=== PATIENT | female | born 1945 | race Caucasian/White ===

== ENCOUNTER → 2021-03-15 | Outpatient (CLI) | payer MEDICARE ==
--- NOTE | 2021-03-16 17:40 | RAD ---
Bilateral digital screening 2-D and 3-D (tomosynthesis) mammogram: Reason for examination: Routine screening. Comparison is made to previous study dated 02/14/2020. Bilateral mammograms in CC and oblique projections were obtained with 2-D imaging and 3-D tomosynthes is imaging and reviewed on the workstation. Interpretation was made with the benefit of CAD. Findings: Breast density: Category D. The breasts are extremely dense which lowers sensitivity of mammography. There is a 8 mm oval mass in the 2:00 position of the right breast about 1 cm from the nipple. There is a 9 mm oval mass in the retroareolar 6:00 region of the left breast. There is a 9 mm probabl e oval mass in the 10:00 position of the left breast about 2 cm from the nipple. Evaluation is limite d due to dense fibroglandular tissue. There are no malignant appearing calcifications or architectura l distortion. Impression: There is evidence of bilateral breast masses. The study is limited due to extremely dense fibroglandu lar tissue. Further evaluation with bilateral whole breast ultrasound is recommended. ASSESSMENT: BI-RADS 0. Incomplete. Recommendations: Bilateral whole breast ultrasound. This patient's information has been entered into a reminder system for the patient to be notified wit h the results of her examination and a target date for the next mammogram. Your patient's mammogram demonstrates that she has dense breast tissue (breast density category C or D), which could hide abnormalities, and if she has other risk factors for breast cancer that have bee n identified, she might benefit from supplemental screening tests that may be suggested by you as her ordering physician. Dense breast tissue, in and of itself, is a relatively common condition. Therefo re, this information is not provided to cause undue concern, but rather to raise your awareness and t o promote discussion with your patient regarding the presence of other risk factors, in addition to d ense breast tissue. Electronically signed by: Torrie Serrato MD (03/16/2021 5:37 PM) [id number]
== END ==
LOC: MAMMO 10:53 → EDUNIT# 11:00
PROVIDERS: ATTEND Family Medicine
DX: Z12.31 Encounter for screening mammogram for malignant neoplasm of breast (principal)
CPT/HCPCS: 77063; 77067

== ENCOUNTER → 2021-03-23 | Outpatient (CLI) | payer MEDICARE ==
--- NOTE | 2021-03-23 14:23 | RAD ---
EXAM: Bilateral breast sonogram. HISTORY: 75-year-old female presents for evaluation of findings within both breasts demonstrated on a mammogram dated 03/15/2021. TECHNIQUE: Sonographic imaging of both breasts including all 4 quadrants and the retroareolar regions was performed. COMPARISON: Mammograms dated 03/15/2021 and 02/14/2020. FINDINGS: Sonographic imaging of the right breast demonstrates extremely dense breast parenchyma. The re are scattered areas of fibrocystic change. There is a 3 mm cyst at the 2:00 position 1 cm from the nipple. No suspicious sonographic lesion is seen. There are benign axillary lymph nodes. Sonographic imaging of the left breast demonstrates extremely dense breast. There are focally dilated ducts containing debris at the 6:00 subareolar location. There is focal fibrocystic change at the 10 :00 position 2 cm from the nipple. There are benign axillary lymph nodes. IMPRESSION: 1. Extremely dense breast parenchyma with superimposed fibrocystic changes, likely accounting for fin dings of concern on the recent mammogram. There is a small cyst at the anterior 2:00 position of the right breast and there are dilated ducts within the anterior 6:00 position of the left breast. There is no suspicious sonographic correlate for the mammographic findings. This favors benignity. 2. BI-RADS Category 3: Probably benign finding(s). Precautionary short term follow up with a diagnost ic bilateral mammogram in 6 months is recommended to confirm mammographic stability. Electronically signed by: Nelia Mendoza MD (03/23/2021 2:21 PM) [id number]
== END ==
LOC: US 16:17
PROVIDERS: ATTEND Family Medicine
DX: N60.01 Solitary cyst of right breast (principal); R92.8 Other abnormal and inconclusive findings on diagnostic imaging of breast
CPT/HCPCS: 76641-50

== ENCOUNTER → 2021-09-18 | Outpatient (CLI) | payer MEDICARE ==
--- NOTE | 2021-09-18 10:38 | RAD ---
PROCEDURE: MG DIGITAL BILAT DIAGNOSTIC MAMMO WITH SIMONE HISTORY: The patient is 75 years old and is seen for Reason: 6 MONTH FOLLOW UP / Spl. Instructions: / History: . COMPARISON: March 15, 2021 mammogram and ultrasound March 23, 2021 TECHNIQUE: CC and MLO views of both breasts were obtained. Images were processed by the [employer] computer-aided detection system. DENSITY: The breast parenchyma is extremely dense, which could obscure a lesion on mammography. FINDINGS: No developing mass, suspicious calcifications or architectural distortion. Scattered alvaro ign-appearing calcifications. IMPRESSION: Benign findings. No evidence of malignancy. Extremely dense breasts. Recommend annual screening mammograms per [employer] guidelines. She will be due in one year. BI-RADS category 2 Benign Patient entered into a reminder system for annual screening mammogram. Electronically signed by: Anthony Moser DO (09/18/2021 10:36 AM) [id number]
== END ==
LOC: MAMMO 09:57
PROVIDERS: ATTEND Family Medicine
DX: R92.2 Inconclusive mammogram (principal); R92.1 Mammographic calcification found on diagnostic imaging of breast
CPT/HCPCS: 77066; G0279; 77062